=== PATIENT | female | born 1990 | race Caucasian/White ===

== ENCOUNTER 2022-07-11 14:17 | Emergency (ER) | payer BC, SELFPAY ==
[2022-07-11] VITALS (7 sets, daily range): BP systolic 125–148; BP diastolic 82–97; PULSE 80–101; TEMP 36.8; O2SAT 96–98; BMI 35.2
--- NOTE | 2022-07-11 16:28 | ED_ITS ---
HPI - Female Genitourinary General: Chief complaint: Urogenital-Female Stated complaint: states hemmorage Time Seen by Provider: 07/11/22 15:34 History of Present Illness: This patient is a 31 year old presenting with heavy vaginal bleeding since Tuesday. She has a history of heavy and irregular periods and has had to have d and c's for heavy bleeding similar to this twice in the past 4 years. She was put on progesterone, which she takes in order to have a period. She takes it every month or every other month. She last took it a month ago, and had a heavy - but normal for her - period that lasted about 10 days. After another 2 weeks, she started bleeding again but it was not very heavy until Tuesday. Since then she has been bleeding through a pad every 1 - 2 hours. She feels lightheaded, short of breath and her heart is racing. She has had to have blood transfusions due to the prior episodes. She actually has an appointment to see a new OB here in [place], but been yet. Because she has been through this twice before she didn't think she could wait to see them. Physical Exam Const: COMMON NORMALS: no acute distress, patient oriented x3, no limitations and alert GENERAL APPEARANCE: cooperative and comfortable HENMT: HEAD & SCALP: normal to inspection FACE & SINUS: normal facial exam Eye: GENERAL EYE: appearance normal, both eyes and all related structures C ONJUNCTIVA: Yes conjunctival abnormal (pale) Neck/C-Spine: COMMON NORMALS: supple, no meningeal signs and no JVD Chest: COMMONS NORMALS: normal inspection of the chest Resp: COMMON NORMALS: normal respiratory effort, No use of accessory muscles and clear to auscultation bilaterally AUSCULTATION: clear to auscultation bilaterally Cardio: COMMON NORMALS: no JVD, regular rate, regular rhythm and No murmurs present (Cardio) RATE: regular rate RHYTHM: regular rhythm GI: COMMON NORMALS: Normal to inspection, nondistended, normoactive bowel sounds present, Soft to palpation and non-tender INSPECTION: Yes normal to inspection AUSCULTATION: Yes normoactive bowel sounds PALPATION: Yes Soft to palpation Back/Pelvis: COMMON NORMALS: thoracic and lumbar spine normal to inspection Extremity: COMMON NORMALS: normal to inspection Neuro: COMMON NORMALS: patient oriented x3, moves all extremities, no focal motor deficits and no sensory deficits noted SENSORIUM/ORIENTATION: Yes alert MENINGEAL SIGNS: Yes no meningeal signs Psych: COMMON NORMALS: mental status grossly normal, cooperative and normal affect Skin: COMMON NORMALS: no rashes or lesions noted and turgor normal GENERAL SKIN EXAM: no rashes or lesions noted and turgor normal Course Vital Signs: Vital signs: Vital Signs Temperature 98.3 F 07/11/22 14:33 Pulse Rate 80 07/11/22 18:04 Blood Pressure 141/87 07/11/22 18:04 Pulse Oximetry 96 07/11/22 18:04 Oxygen Delivery Me thod 07/11/22 18:04 MDM - Female Medical Decision Making History of severe anemia secondary to menorrhagia. Today her HGB is 13, and she is able to ambulate without difficulty. Lab Data 07/11/22 16:12 07/11/22 16:12 Laboratory Results WBC 12.1 10^3/uL (4.0-10.0) H 07/11/22 16:12 RBC 5.06 10^6/uL (4.1-5.3) 07/11/22 16:12 Hgb 13.5 g/dL (11.5-15.3) 07/11/22 16:12 Hct 41.0 % (37.0-47.0) 07/11/22 16:12 MCV 81.0 fl (81-99) 07/11/22 16:12 MCH 26.7 pg (28.0-34.0) L 07/11/22 16:12 MCHC 32.9 g/dL (30.0-36.0) 07/11/22 16:12 RDW 13.4 % (12.1-15.1) 07/11/22 16:12 Plt Count 277 10^3/cmm (130-400) 07/11/22 16:12 MPV 8.8 fL (7.4-10.4) 07/11/22 16:12 Neut % (Auto) 73.5 % 07/11/22 16:12 Lymph % (Auto) 18.0 % 07/11/22 16:12 [place] % (Auto) 4.9 % 07/11/22 16:12 Eos % (Auto) 2.6 % 07/11/22 16:12 Baso % (Auto) 0.4 % 07/11/22 16:12 Neut # (Auto) 8.87 10^3/uL (1.8-7.7) H 07/11/22 16:12 Lymph # (Auto) 2.2 10^3/uL (0.8-4.8) 07/11/22 16:12 [place] # (Auto) 0.6 10^3/uL (0.2-0.9) 07/11/22 16:12 Eos # (Auto) 0.3 10^3/uL (0.0-0.8) 07/11/22 16:12 Baso # (Auto) 0.1 10^3/uL (0.0-0.1) 07/11/22 16:12 Nucleated RBC % (auto) 0 % 07/11/22 16:12 Nucleated RBCs # 0.0 /100WBC 07/11/22 16:12 Sodium 140 mmol/L (136-145) 07/11/22 16:12 Potassium 3.9 mmol/L (3.5-5.1) 07/11/22 16:12 Chloride 101 mmol/L (98-107) 07/11/22 16:12 Carbon Dioxide 25 mmol/L (22-29) 07/11/22 16:12 Anion Gap 17.9 (5-19) 07/11/22 16:12 BUN 8 mg/dL (6-20) 07/11/22 16:12 Creatinine 0.7 mg/dL (0.5-0.9) 07/11/22 16:12 GFR Calculation 96.4 mL/min (90-130) 07/11/22 16:12 Glucose 93 mg/dL (65-115) 07/11/22 16:12 Calculated Osmolality 288 mOsm/kg (285-295) 07/11/22 16:12 Calcium 9.9 mg/dL (8.5-10.5) 07/11/22 16:12 Total Bilirubin 1.1 mg/dL (0.15-1.2) 07/11/22 16:12 AST 59 U/L (0-32) H 07/11/22 16:12 ALT 80 U/L (0-33) H 07/11/22 16:12 Alkaline Phosphatase 90 U/L (35-105) 07/11/22 16:12 Total Protein 8.9 g/dL (6.6-8.7) H 07/11/22 16:12 Albumin 4.6 g/dL (3.5-5.2) 07/11/22 16:12 Globulin 4.3 g/dL (1.3-4.6) 07/11/22 16:12 HCG, Qual Negative (Negative) 07/11/22 16:12 Blood Type O Positive 07/11/22 16:12 Rho(D) Type Positive 07/11/22 16:12 Antibody Screen Negative 07/11/22 16:12 Discharge Plan Discharge Patient Disposition: Home Clinical Impression: Menorrhagia Condition: Stable Discharge Orders: Discharge ED (Routine); Ordered 07/11/22 Ordered By: Korin Muñoz Referrals: Laquita Hutchison MD [Primary Care Provider] - Discharge Diet: Advance as tolerated Discharge Activity: Resume usual activity Patient Instructions: Opioid Safety, Pain Management Activity Restrictions/Additional Instructions: Return to the ED if worse in any way. Keep your appointment with Dr. Hutchison as planned. Coding Level of Care Code ED Beauty Parlor Cleaner for Jose Zaldivar
[2022-07-11] MEDS: sodium chloride 0.9% 1,000 ML 999 ML IV (16:29)
[2022-07-11 16:34] LABS: Basophils # 0.1 10^3/uL (0.0-0.1); Basophils % 0.4 %; Eosinophils # 0.3 10^3/uL (0.0-0.8); Eosinophils % 2.6 %; Hemoglobin 13.5 g/dL (11.5-15.3); Lymphocytes # 2.2 10^3/uL (0.8-4.8); Mean Corpuscular HGB Conc 32.9 g/dL (30.0-36.0); Mean Corpuscular Hemoglobin 26.7 pg (28.0-34.0); Mean Platelet Volume 8.8 fL (7.4-10.4); Monocytes # 0.6 10^3/uL (0.2-0.9); Monocytes % 4.9 %; Neutrophils # 8.87 10^3/uL (1.8-7.7); Neutrophils % 73.5 %; Nucleated Red Blood Cells % 0 %; Platelet Count 277 10^3/cmm (130-400); Red Blood Count 5.06 10^6/uL (4.1-5.3); Red Cell Distribution Width 13.4 % (12.1-15.1); White Blood Count 12.1 10^3/uL (4.0-10.0)
[2022-07-11 16:58] LABS: Alanine Aminotransferase 80 U/L (0-33); Albumin Level 4.6 g/dL (3.5-5.2); Alkaline Phosphatase 90 U/L (35-105); Anion Gap 17.9 (5-19); Aspartate Amino Transferase 59 U/L (0-32); Blood Urea Nitrogen 8 mg/dL (6-20); Calcium 9.9 mg/dL (8.5-10.5); Carbon Dioxide 25 mmol/L (22-29); Chloride 101 mmol/L (98-107); Globulin 4.3 g/dL (1.3-4.6); Glomerular Filtration Rate 96.4 mL/min (90-130); Glucose 93 mg/dL (65-115); Osmolality Calculated 288 mOsm/kg (285-295); Potassium 3.9 mmol/L (3.5-5.1); Sodium 140 mmol/L (136-145); Total Bilirubin 1.1 mg/dL (0.15-1.2); Total Protein 8.9 g/dL (6.6-8.7)
[2022-07-11 17:07] LABS: HCG, Serum Qual Negative (Negative)
== END 2022-07-11 18:32 | disposition home or self-care (01) ==
PROVIDERS: Emergency Provider Emergency Medicine; PCP Obstetrics & Gynecology
DX: N92.0 Excessive and frequent menstruation with regular cycle (principal)
CPT/HCPCS: 80053; 84703; 85025; 86850; 86900; 96360; 99284; J7030

== ENCOUNTER → 2022-07-14 08:24 | Outpatient (BNVA) | payer BC, SELFPAY | PROVIDERS: PCP Obstetrics & Gynecology; Visit Provider Obstetrics & Gynecology | DX: N93.9 Abnormal uterine and vaginal bleeding, unspecified (principal) | CPT/HCPCS: 83036; 83525; 84443; 85025; 88305 ==

== ENCOUNTER → 2022-07-22 11:09 | Outpatient (BNVA) | payer BC, SELFPAY | PROVIDERS: PCP Obstetrics & Gynecology; Visit Provider Obstetrics & Gynecology | DX: N93.9 Abnormal uterine and vaginal bleeding, unspecified (principal) | CPT/HCPCS: 76830 ==

== ENCOUNTER 2022-07-26 18:18 | Emergency (ER) | payer BC, SELFPAY ==
[2022-07-26 18:31] VITALS: BP 136/86; PULSE 103; TEMP 36.7; O2SAT 99; BMI 35.2
--- NOTE | 2022-07-26 19:01 | W.ED.FEMALGU ---
HPI - Female Genitourinary General: Chief complaint: Vaginal Bleeding Stated complaint: vag bleed Time Seen by Provider: 07/26/22 18:38 Source: patient Mode of arrival: ambulatory Limitations: no limitations History of Present Illness: 31-year-old female who states that she has been having vaginal bleeding over the last 3 weeks. She states this is happened 3 times over the last few months. She was seen by Dr. Boyce on the sixth she had an ultrasound and blood work states that her bleeding has continued she has not followed back up with her she had some slight lower abdominal cramping denies any syncopal events denies any vomiting or diarrhea. Associated symptoms: Deny abdominal pain, headache(s) or nausea Review of Systems Const: Denies: fever(s), chills, body aches or change in appetite Eyes: Denies: blurry vision or eye discomfort ENMT: Denies: throat pain or dental pain Card: Denies: chest pain Resp: Denies: dyspnea GI: Denies: abdominal pain, nausea, vomiting or diarrhea : Reports: vaginal bleeding Musc: Denies: neck pain or back pain Skin/Breast: Denies: rash Neuro: Denies: headache(s) Psych: Denies: depression [place]/Lymph: Denies: easy bruising All/Imm: Denies: urticaria PFSH ED PFSH: Surgical History History of D&C Family History Grandmother Stroke Maternal Denies family history of Colon cancer Ovarian cancer Diabetes Heart disease Hypercholesteremia Breast cancer Hypertension Uterine cancer Thyroid disease Physical Exam Const: COMMON NORMALS: no acute distress, patient oriented x3 and healthy appearing HENMT: COMMON NORMALS: normocephalic and atraumatic HEAD & SCALP: normocephalic and atraumatic Eye: COMMON NORMALS: Equal, round and reactive pupils present and EOMs intact bilaterally PUPIL: Yes Equal, round and reactive pupils present Neck/C-Spine: COMMON NORMALS: full ROM and supple Chest: COMMONS NORMALS: normal inspection of the chest and normal palpation of entire chest wall Resp: COMMON NORMALS: normal respiratory effort, No retractions, No use of accessory muscles and clear to auscultation bilaterally AUSCULTATION: clear to auscultation bilaterally Cardio: COMMON NORMALS: regular rate, regular rhythm and No murmurs present (Cardio) RATE: regular rate RHYTHM: regular rhythm GI: COMMON NORMALS: Normal to inspection, nondistended, normoactive bowel sounds present, Soft to palpation, non-tender and no masses PALPATION: Yes Soft to palpation Extremity: COMMON NORMALS: normal to inspection and full ROM Neuro: COMMON NORMALS: patient oriented x3, moves all extremities and no focal motor deficits Psych: COMMON NORMALS: mental status grossly normal, Normal thought process present and cooperative THOUGHT PROCESS: Normal thought process present Skin: COMMON NORMALS: no rashes or lesions noted and no wounds GENERAL SKIN EXAM: no rashes or lesions noted Course Vital Signs: Vital signs: Vital Signs Temperature 98.0 F 07/26/22 18:31 Pulse Rate 87 07/26/22 20:13 Blood Pressure 129/78 07/26/22 20:13 Pulse Oximetry 99 07/26/22 18:31 Oxygen Delivery Me thod 07/26/22 18:31 MDM - Female Medical Decision Making Patient presents with vaginal bleeding its been going on over the last 3 weeks she has been seen multiple times 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 Her hemoglobin here is 10.6 her orthostatic vital signs are normal have spoke to her OB Dr. Hutchison who suggested starting patient on Provera for 10 days she has an appoint with her in 2 weeks she is to follow-up as scheduled return if worsening she understands agrees to plan. She had a recent ultrasound as well Lab Data I reviewed the patient's lab results. 07/26/22 19:17 07/26/22 19:17 Laboratory Results WBC 12.0 10^3/uL (4.0-10.0) H 07/26/22 19:17 RBC 3.97 10^6/uL (4.1-5.3) L 07/26/22 19:17 Hgb 10.6 g/dL (11.5-15.3) L 07/26/22 19:17 Hct 32.3 % (37.0-47.0) L 07/26/22 19:17 MCV 81.4 fl (81-99) 07/26/22 19:17 MCH 26.7 pg (28.0-34.0) L 07/26/22 19:17 MCHC 32.8 g/dL (30.0-36.0) 07/26/22 19:17 RDW 13.3 % (12.1-15.1) 07/26/22 19:17 Plt Count 301 10^3/cmm (130-400) 07/26/22 19:17 MPV 9.0 fL (7.4-10.4) 07/26/22 19:17 Neut % (Auto) 66.1 % 07/26/22 19:17 Lymph % (Auto) 23.2 % 07/26/22 19:17 [place] % (Auto) 7.1 % 07/26/22 19:17 Eos % (Auto) 2.3 % 07/26/22 19:17 Baso % (Auto) 0.6 % 07/26/22 19:17 Neut # (Auto) 7.94 10^3/uL (1.8-7.7) H 07/26/22 19:17 Lymph # (Auto) 2.8 10^3/uL (0.8-4.8) 07/26/22 19:17 [place] # (Auto) 0.9 10^3/uL (0.2-0.9) 07/26/22 19:17 Eos # (Auto) 0.3 10^3/uL (0.0-0.8) 07/26/22 19:17 Baso # (Auto) 0.1 10^3/uL (0.0-0.1) 07/26/22 19:17 Nucleated RBC % (auto) 0 % 07/26/22 19:17 Nucleated RBCs # 0.0 /100WBC 07/26/22 19:17 Sodium 134 mmol/L (136-145) L 07/26/22 19:17 Potassium 3.6 mmol/L (3.5-5.1) 07/26/22 19:17 Chloride 99 mmol/L (98-107) 07/26/22 19:17 Carbon Dioxide 26 mmol/L (22-29) 07/26/22 19:17 Anion Gap 12.6 (5-19) 07/26/22 19:17 BUN 7 mg/dL (6-20) 07/26/22 19:17 Creatinine 0.6 mg/dL (0.5-0.9) 07/26/22 19:17 GFR Calculation 115.1 mL/min (90-130) 07/26/22 19:17 Glucose 90 mg/dL (65-115) 07/26/22 19:17 Calculated Osmolality 276 mOsm/kg (285-295) L 07/26/22 19:17 Calcium 9.2 mg/dL (8.5-10.5) 07/26/22 19:17 Total Bilirubin 0.6 mg/dL (0.15-1.2) 07/26/22 19:17 AST 34 U/L (0-32) H 07/26/22 19:17 ALT 57 U/L (0-33) H 07/26/22 19:17 Alkaline Phosphatase 86 U/L (35-105) 07/26/22 19:17 Total Protein 8.6 g/dL (6.6-8.7) 07/26/22 19:17 Albumin 4.7 g/dL (3.5-5.2) 07/26/22 19:17 Globulin 3.9 g/dL (1.3-4.6) 07/26/22 19:17 HCG, Qual Negative (Negative) 07/26/22 19:17 Discharge Plan Discharge Patient Disposition: Home Clinical Impression: Vaginal bleeding Condition: Stable Prescriptions: New Provera 10 mg tablet 10 mg PO DAILY 14 Days Qty: 14 0RF Rx Instructions: begin day 1 of cycle No Action metformin 500 mg tablet extended release 24 hr 500 mg PO DAILY Qty: 30 6RF Discharge Orders: Discharge ED (Routine); Ordered 07/26/22 Ordered By: Susan Zhu Referrals: Laquita Hutchison MD [Primary Care Provider] - 1-3 days Discharge Diet: Advance as tolerated Discharge Activity: Resume usual activity Patient Instructions: Abnormal (Dysfunctional) Uterine Bleeding (ED) Coding Level of Care Code ED Adoption Worker for Jose Zaldivar
[2022-07-26] MEDS: sodium chloride 0.9% 1,000 ML 999 ML IV (19:18)
[2022-07-26 19:29] LABS: Basophils # 0.1 10^3/uL (0.0-0.1); Basophils % 0.6 %; Eosinophils # 0.3 10^3/uL (0.0-0.8); Eosinophils % 2.3 %; Hematocrit 32.3 % (37.0-47.0); Hemoglobin 10.6 g/dL (11.5-15.3); Lymphocytes # 2.8 10^3/uL (0.8-4.8); Lymphocytes % 23.2 %; Mean Corpuscular HGB Conc 32.8 g/dL (30.0-36.0); Mean Corpuscular Hemoglobin 26.7 pg (28.0-34.0); Mean Corpuscular Volume 81.4 fl (81-99); Monocytes # 0.9 10^3/uL (0.2-0.9); Monocytes % 7.1 %; Neutrophils # 7.94 10^3/uL (1.8-7.7); Neutrophils % 66.1 %; Nucleated Red Blood Cells % 0 %; Platelet Count 301 10^3/cmm (130-400); Red Blood Count 3.97 10^6/uL (4.1-5.3); Red Cell Distribution Width 13.3 % (12.1-15.1)
[2022-07-26 19:51] LABS: HCG, Serum Qual Negative (Negative)
[2022-07-26 19:56] LABS: Alanine Aminotransferase 57 U/L (0-33); Albumin Level 4.7 g/dL (3.5-5.2); Alkaline Phosphatase 86 U/L (35-105); Anion Gap 12.6 (5-19); Aspartate Amino Transferase 34 U/L (0-32); Blood Urea Nitrogen 7 mg/dL (6-20); Calcium 9.2 mg/dL (8.5-10.5); Carbon Dioxide 26 mmol/L (22-29); Chloride 99 mmol/L (98-107); Globulin 3.9 g/dL (1.3-4.6); Glomerular Filtration Rate 115.1 mL/min (90-130); Glucose 90 mg/dL (65-115); Osmolality Calculated 276 mOsm/kg (285-295); Potassium 3.6 mmol/L (3.5-5.1); Sodium 134 mmol/L (136-145); Total Bilirubin 0.6 mg/dL (0.15-1.2); Total Protein 8.6 g/dL (6.6-8.7)
[2022-07-26 20:13] VITALS: BP 121/84; BP 129/78; BP 138/90; PULSE 86; PULSE 87; PULSE 91
--- NOTE | 2022-07-26 20:42 | PC.NURSE ---
Upon teaching pt and about discharge instructions and med administration of provera. Pt refused medication stating she has can't handle the adverse effects of it right now . Pt became concerned that they were being charged for unwanted medication. This nurse educated pt and they are not going to be charged for medication that was not administered or unneeded equipment, pt and verbalized understanding. Pt did not have a pulse ox at the time of discharge. Blood pressure was taken for discharge vitals but no other vitals obtained due to pt concerns of unneeded charges. Will use the heart rate from vitals taken within 30 minutes of discharge.
[2022-07-26 20:51] VITALS: BP 124/78; PULSE 91; RESP 18; O2SAT 99
--- NOTE | 2022-07-27 08:37 | DCPLANNER ---
Addendum entered by Daniella Meredith 07/28/22 07:50: creative manager received the following message from the [facility] care clinic regarding follow up appointment: Patient is already seeing Dr Hutchison and needs a procedure, but has no active insurance at this time//JS Original Note: creative manager had message to schedule a follow up appointment for patient with [facility]. creative manager sent patients information to the front office staff at [facility]. Patients information will be printed and reviewed. Clinic will call patient with appointment information.
== END 2022-07-26 20:54 | disposition home or self-care (01) ==
PROVIDERS: Emergency Provider Emergency Medicine; PCP Obstetrics & Gynecology
DX: N93.9 Abnormal uterine and vaginal bleeding, unspecified (principal); Z79.84 Long term (current) use of oral hypoglycemic drugs
CPT/HCPCS: 36415; 80053; 84703; 85025; 96360; 99284; J7030